=== PATIENT | female | born 1990 | race Caucasian/White ===

== ENCOUNTER 2021-02-25 15:38 | Emergency (ER) | payer OTHER ==
[~2021-02-25] VITALS: Ht 165.1 cm; Wt 95.3 kg
[2021-02-25 16:40] LABS: ABSOLUTE NEUTROPHILS 7.7 thou/uL (1.4-8.2); BASOPHILS 0.5 % (0.0-2.0); EOSINOPHILS 1.4 % (0.0-3.0); HEMATOCRIT 30.2 % (37.0-47.0); HEMOGLOBIN 10.5 gm/dL (12.0-15.0); LYMPHOCYTES 14.6 % (24.0-44.0); MCH 28.2 pg (26.0-34.0); MCHC 34.8 g/dL (28.0-37.0); MONOCYTES 5.8 % (1.0-8.0); PLATELET COUNT 187 thou/uL (150-400); POLYS 77.7 % (36.0-66.0); RBC 3.72 mil/uL (4.20-5.00); RDW 13.3 % (10.5-14.5); WBC 9.9 thou/uL (4.0-11.0)
[2021-02-25 16:45] LABS: ANION GAP 11 mmol/L (7-16); BUN 6 mg/dL (7-18); CALCIUM 8.4 mg/dL (8.5-10.1); CHLORIDE 109 mmol/L (98-107); CO2 21 mmol/L (21-32); CREATININE 0.5 mg/dL (0.6-1.0); GLUCOSE 113 mg/dL (74-106); POTASSIUM 3.7 mmol/L (3.5-5.1); SODIUM 141 mmol/L (136-145)
[2021-02-25 16:51] LABS: ALBUMIN 2.8 g/dL (3.4-5.0); DIRECT BILIRUBIN < 0.1 mg/dL (<0.1-0.2); SGOT 18 U/L (15-37); SGPT 15 U/L (14-59); TOTAL BILIRUBIN 0.2 mg/dL (0.2-1.0)
[2021-02-25 17:03] LABS: URINE BILIRUBIN NEGATIVE (Negative); URINE BLOOD NEGATIVE (Negative); URINE CLARITY CLEAR; URINE COLOR YELLOW; URINE GLUCOSE-RANDOM* NEGATIVE (Negative); URINE KETONES NEGATIVE (Negative); URINE LEUKOCYTES-REFLEX TRACE (Negative); URINE NITRITE-REFLEX NEGATIVE (Negative); URINE PROTEIN (DIPSTICK) NEGATIVE (Negative); URINE UROBILINOGEN 0.2 E.U./dl (0.2-1.0)
[2021-02-25 17:42] VITALS: BP 126/73
--- NOTE | 2021-02-26 07:13 | EKG ---
[place] [address] [facility] [place] [address] ELECTROCARDIOGRAM REPORT Name: JOCELYN CHAUHAN [facility]: [facility] [id number] Admission: 02/25/21 Attend Phys: Discharge: 02/25/21 Date of : 89 Report #: [id number] [facility] ED Test Date: 2021-02-25 Test Time: 15:45:16 Pat Name: JOCELYN CHAUHAN Department: Room: Gender: F Racecar Driver: MANISHA : 1990 Requested By: Stephen Caldwell Order Number: [id number] MD: Brandon Coughlin Measurements Intervals [place] Rate: 96 P: 37 WA: 154 QRS: 53 QRSD: 78 T: -2 QT: 324 QTc: 410 Interpretive Statements Sinus rhythm Borderline T abnormalities, inferior leads No previous ECG available for comparison Electronically Signed On 02-26-2021 7:13:28 CDT by Brandon Coughlin [email or web address] <ELECTRONICALLY SIGNED> By: Brandon Coughlin MD, [facility] 02/26/21 0713 1545 1545 Brandon Coughlin MD, FACC /EPI
== END 2021-02-25 17:42 | disposition home or self-care (01) ==
LOC: ER 15:38
PROVIDERS: Nurse Practitioner
DX: O26.893 Other specified pregnancy related conditions, third trimester (principal); R00.2 Palpitations; R22.43 Localized swelling, mass and lump, lower limb, bilateral; R00.0 Tachycardia, unspecified; Z3A.33 33 weeks gestation of pregnancy